=== PATIENT | male | born 1930 | race Caucasian/White ===

== ENCOUNTER 2021-09-08 10:39 | Inpatient (IN) | payer MEDICARE, OTHER ==
[~2021-09-08] VITALS: Ht 185.4 cm; Wt 78.0 kg
--- NOTE | 2021-09-08 11:00 | NUR ---
PT [email or web address] @ 1040 frm [facility] for noted sob and low o2 sats at 70's on 3lpm NC. Pt put on 15lpm NRB satting at 100%. Connected pt to [employer] an Monitor. FIBERGLASS ROLLER RAC #20g s/l; patent and intact. pt DNR/DNI
[2021-09-08] MEDS ORDERED: HYDR-500 PO (11:02)
[2021-09-08] MEDS ORDERED: ZINC220T4 PO (11:02)
[2021-09-08] MEDS ORDERED: THIA100T88 PO (11:02)
[2021-09-08] MEDS ORDERED: MIRT-121 PO (11:02)
[2021-09-08] MEDS ORDERED: GABA-532 PO (11:02)
[2021-09-08] MEDS ORDERED: ASCO100031 PO (11:02)
[2021-09-08] MEDS ORDERED: CHOL200013 PO (11:02)
[2021-09-08] MEDS ORDERED: LEVO25TA7 PO (11:02)
[2021-09-08] MEDS ORDERED: MULT-439 PO (11:02)
[2021-09-08] MEDS ORDERED: ACETAMINOPHEN 650 MG/SUPP.RECT RC ONE ×2 (11:29→11:30)
[2021-09-08] MEDS: VANCOMYCIN 1 GM in IV D5W 250 ML IV ONE ×2 (11:30→12:23)
[2021-09-08] MEDS ORDERED: IV NS 0.9% 1,000 ML BAG IV ONE (11:30)
[2021-09-08] MEDS ORDERED: PIPERACILLIN /TAZOBACTAM 3.375 G in IV D5W 50 ML IV ONE (11:30)
--- NOTE | 2021-09-08 11:30 | NUR ---
LAC #18G S/L; PATENT AND INTACT. BLOOD COLLECTED AND GIVEN TO VANGIE ORDOÑEZ
[2021-09-08 11:44] LABS: BASOPHILS % (AUTO) 0.1 % (0.0-2.0); HEMOGLOBIN 17.4 g/dL (13.5-17.5); NEUTROPHILS # (AUTO) 13.9 K/uL (1.8-8.9)
--- NOTE | 2021-09-08 11:45 | NUR ---
CALLED [facility] TO ASK THE CODE STATUS OF PT. WAS NOTIFIED THAT THE PT HAS A DNR. FAXED A DISCLOSURE FORM TO BE ABLE TO RECIEVE THE DNR.
--- NOTE | 2021-09-08 11:46 | NUR ---
URINE, COVID ANTIGEN SWAB, INFLUENZA SWAB AND COVID PCR SWAB COLLECTED AND SENT TO LAB
[2021-09-08 11:54] LABS: HEMATOCRIT 52 % (39-51); LYMPHOCYTES # (AUTO) 0.7 K/uL (0.8-4.8); LYMPHOCYTES % (AUTO) 4.4 % (20.0-44.0); MEAN CORPUSCULAR HGB CONC 33 g/dl (31.0-36.0); MEAN CORPUSCULAR VOLUME 101 fL (80-96); MONOCYTES # (AUTO) 0.9 K/uL (0.1-1.30); MONOCYTES % (AUTO) 5.9 % (2.0-12.0); NEUTROPHILS % (AUTO) 89.6 % (43.0-81.0); PLATELET COUNT (AUTO) 172 K/uL (150-450); RED BLOOD CELL COUNT(AUTO) 5.16 MIL/uL (4.5-6.0); WHITE BLOOD COUNT (AUTO) 15.6 K/uL (4.3-11.0)
[2021-09-08 12:00] LABS: CALCIUM, SERUM 8.9 mg/dL (8.5-10.1); CARBON DIOXIDE 25 mmol/L (21-32); CHLORIDE 109 mmol/L (98-107); CREATININE 1.4 mg/dL (0.6-1.3); GLUCOSE 191 mg/dL (74-106); SODIUM SERUM 147 mmol/L (136-145); UREA NITROGEN, BLOOD 51 mg/dL (7-18)
[2021-09-08 12:09] LABS: ALANINE AMINOTRANSFERASE 53 U/L (12-78); ALBUMIN 2.7 g/dL (3.4-5.0); ALKALINE PHOSPHATASE 77 U/L (46-116); ASPARTATE AMINOTRANSFERASE 57 U/L (15-37); BILIRUBIN,TOTAL 1.4 mg/dL (0.2-1.0)
[2021-09-08 12:27] LABS: BILIRUBIN,URINE SMALL (NEGATIVE); COLOR,URINE DARK YELLOW (YELLOW); LEUKOCYTE ESTERASE ,URINE NEGATIVE (NEGATIVE); NITRITE, URINE NEGATIVE (NEGATIVE); PROTEIN,URINE 30 mg/dl (NEGATIVE); UGLUCOSE NEGATIVE (NEGATIVE)
--- NOTE | 2021-09-08 12:33 | NUR ---
LACTIC ACID 4.7. TROPONIN 1.611. MATTHEW OCASIO AWARE
[2021-09-08 12:34] LABS: CREATINE KINASE, TOTAL 357 U/L (39-308); FERRITIN 2470 ng/mL (8-388)
--- NOTE | 2021-09-08 12:44 | NUR ---
ABG RESULT WITH NRB 15LPM PH 7.467 PCO2 34.3 PO2 60.7 HCO3 24.2
--- NOTE | 2021-09-08 12:44 | NUR ---
G RESULTED WITH NO NEW ORDERS FROM DR. CASTRO
[2021-09-08 12:45] LABS: C-REACTIVE PROTEIN 10.5 mg/dL (0.0-0.9)
[2021-09-08 12:56] LABS: BACTERIA,URINE Few /HPF (None Seen); RBC,URINE 0-2 /HPF (0-2); SQUAMOUS EPITHELIAL CELL,UR Few /HPF (None Seen); WBC,URINE 0-2 /HPF (0-3)
[2021-09-08 12:57] LABS: HYALINE CASTS, URINE Rare /LPF (None Seen); MUCUS,URINE Few /LPF (None Seen)
[2021-09-08] MEDS ORDERED: IV NS 0.9% 1,000 ML IV PRN (13:30)
[2021-09-08] MEDS ORDERED: DEXAMETHASONE SOD PHOSPHATE 6 MG in IV D5W 50 ML IV SCH (13:30)
[2021-09-08] MEDS ORDERED: CEFEPIME 1 GM in IV D5W 50 ML IV SCH (13:30)
[2021-09-08] MEDS ORDERED: ENOXAPARIN SODIUM 30 MG/0.3 ML DISP.SYRIN IV ONE (13:30)
[2021-09-08] MEDS ORDERED: ACETAMINOPHEN 325 MG TABLET PO PRN (13:30)
[2021-09-08] MEDS ORDERED: ONDANSETRON HCL/PF 4 MG/2 ML VIAL IVP PRN (13:30)
[2021-09-08 15:10] LABS: BILIRUBIN,DIRECT 0.4 mg/dL (0.0-0.2)
[2021-09-08] MEDS ORDERED: DEXAMETHASONE SOD PHOSPHATE 10 MG/ML VIAL IV SCH (16:00)
[2021-09-08] MEDS ORDERED: CEFEPIME 2 GM in IV D5W 100 ML IV SCH (16:00)
--- NOTE | 2021-09-08 16:10 | NUR ---
NOTIFIED DR BUTLER AND DR BROWN THAT TROPONIN WENT FROM 1.611 TO 1.986
--- NOTE | 2021-09-08 16:10 | NUR ---
Isis chappell in [facility] - 09/08/21 at [address] BUTLER AND DR WHEELER THAT TROPEN WENT FROM 1.611 TO 1.986
[2021-09-08] MEDS ORDERED: ENOXAPARIN SODIUM 30 MG/0.3 ML DISP.SYRIN ONE (16:21)
[2021-09-08] MEDS ORDERED: DEXAMETHASONE SOD PHOSPHATE 10 MG/ML VIAL ONE (16:21)
--- NOTE | 2021-09-08 18:36 | NUR ---
[facility] [phone]
--- NOTE | 2021-09-08 19:17 | NUR ---
TROPONIN 5.340 & LACTIC ACID 10.4. DR. BUTLER AWARE
[2021-09-08] MEDS ORDERED: ENOXAPARIN SODIUM 80 MG/0.8 ML DISP.SYRIN SQ SCH (21:00)
[2021-09-08] MEDS ORDERED: ENOXAPARIN SODIUM 80 MG/0.8 ML DISP.SYRIN SQ ONE (21:33)
--- NOTE | 2021-09-08 21:35 | NUR ---
Note misti in EDM - 09/09/21 at 0036 by OLIVIA PT PULSELESS, NO RESPIRATIONS. PUPILS FIXED. NO RESPONSE TO PAIN. SKIN COOL TO TOUCH. TIME OF WITNESSED WITH 2 RNS 6305.
--- NOTE | 2021-09-08 21:45 | NUR ---
PT BECOMING BRADYCHARDIC, AGONAL RESPIRATIONS. HR 51 BP 58/18. UNABLE TO OBTAIN PULSE OXYMETRY. DR HERRERA NOTIFIED. DAUGHTER- IGNACIO WHITLEY NOTIFIED OF PATIENT CONDITIONS. DAUGHTER'S WISHES ARE TO KEEP PT COMFORTABLE AND MAINTAIN DNR/DNI.
[2021-09-08 22:15] VITALS: BP 25/17
--- NOTE | 2021-09-08 22:35 | NUR ---
PT PULSELESS, NO RESPIRATIONS. PUPILS FIXED. NO RESPONSE TO PAIN. SKIN COOL TO TOUCH. TIME OF WITNESSED WITH 2 RNS 6782.
--- NOTE | 2021-09-08 22:37 | NUR ---
DAUGHTER IGNACIO WHITLEY NOTIFIED OF .
--- NOTE | 2021-09-08 22:37 | NUR ---
NOTIFIED NURSING CANDY COUNTER CLERK AND FAMILY PT'S TIME OF IS 5021
--- NOTE | 2021-09-08 22:47 | NUR ---
[facility]ON[facility] OFFICE CALLED TO REPORT . NOT CORONERS CASE PER BREANNA.
--- NOTE | 2021-09-08 22:58 | NUR ---
[facility] CALLED TO REPORT . SPOKE WITH LUCA SORTO. [facility] WILL NOT BE CONTINUING WITH CASE. [id number]
--- NOTE | 2021-09-08 23:05 | NUR ---
DR HIRAL CORTEZ PAGED TO NOTIFY OF
--- NOTE | 2021-09-08 23:40 | NUR ---
BODY CLEAND AND LABELED; BROUGHT TO [facility] [place] WITH PATIENT BELONGINGS LABELED.
[2021-09-09] MEDS ORDERED: VANCOMYCIN 1.25 GM in IV D5W 250 ML IV SCH (09:00)
[2021-09-10 09:15] LABS: ABG BASE EXCESS 1.2 mmol/L; ABG PCO2 34.3 mmHg (35.0-45.0); ABG PH 7.467 (7.350-7.450); ABG PO2 60.7 mmHg (75.0-100.0); COHb 0.3 % (0.5-1.5); MetHb 0.2 % (0.0-1.5); O2Hb 92.1 % (94.0-97.0); SITE, ABG Left Radial; VENT MODE, BG non rebreather
--- NOTE | 2021-09-11 14:30 | NUR ---
PT FAMILY CALLED AND NOTIFIED THAT PT WAS COVID +
== END 2021-09-08 23:40 | DRG 871 ==
LOC: ER 11:10 → TRANSITION 15:48
PROVIDERS: ADMIT Internal Medicine; ATTEND Internal Medicine
DX: A41.89 Other specified sepsis (principal); U07.1 COVID-19; N17.0 Acute kidney failure with tubular necrosis; J96.01 Acute respiratory failure with hypoxia; J12.82 Pneumonia due to coronavirus disease 2019; J15.9 Unspecified bacterial pneumonia; G93.41 Metabolic encephalopathy; I21.4 Non-ST elevation (NSTEMI) myocardial infarction; E87.2 Acidosis; R65.20 Severe sepsis without septic shock; F03.90 Unspecified dementia, unspecified severity, without behavioral disturbance, psychotic disturbance, mood disturbance, and anxiety; I25.10 Atherosclerotic heart disease of native coronary artery without angina pectoris; I48.0 Paroxysmal atrial fibrillation; E78.5 Hyperlipidemia, unspecified; Z85.038 Personal history of other malignant neoplasm of large intestine; Z98.61 Coronary angioplasty status; Z87.19 Personal history of other diseases of the digestive system; Z98.890 Other specified postprocedural states; E11.9 Type 2 diabetes mellitus without complications; F32.9 Major depressive disorder, single episode, unspecified; E03.9 Hypothyroidism, unspecified; Z79.899 Other long term (current) drug therapy; Y95 Nosocomial condition; Z66 Do not resuscitate; Z79.890 Hormone replacement therapy; I10 Essential (primary) hypertension
CPT/HCPCS: 36415; 36600; 71045-TC; 80053-TC; 81001; 82248-TC; 82550-TC; 82553; 82728-TC; 82803-TC; 83605-TC; 83615-TC; 83880; 84484-TC; 85025-TC; 85378-TC; 86140-TC; 87040-TC; 87081-TC; 87086-TC; 93307-TC; C9803; G0378; J0692; J1100; J1650; J2543; J3370; J7030; J7060; U0003